=== PATIENT | female | born 1990 | race African-American/Black ===

== ENCOUNTER 2021-04-21 12:26 | Emergency (ER) | payer MEDICAID ==
[~2021-04-21] VITALS: Ht 165.1 cm; Wt 70.0 kg
[2021-04-21 13:12] LABS: BASOPHILS % (AUTO) 1.1 % (0.0-2.0); EOSINOPHILS % (AUTO) 0.4 % (1.0-6.0); HEMATOCRIT 41.7 % (36-46); HEMOGLOBIN 14.1 g/dL (12.0-16.0); LYMPHOCYTES # (AUTO) 1.2 K/uL (1.0-4.8); LYMPHOCYTES % (AUTO) 21.7 % (22.0-44.0); MEAN CORPUSCULAR HEMOGLOBIN 34.7 pg (26.0-34.0); MEAN CORPUSCULAR HGB CONC 33.7 G/dL (31.0-37.0); MEAN CORPUSCULAR VOLUME 103 fL (80-100); MONOCYTES # (AUTO) 0.6 K/uL (0.1-1.0); MONOCYTES % (AUTO) 11.2 % (2.0-9.0); NEUTROPHILS # (AUTO) 3.5 K/uL (1.8-7.7); NEUTROPHILS % (AUTO) 65.6 % (40.0-70.0); PLATELET COUNT (AUTO) 188 K/uL (150-450); RED BLOOD CELL COUNT(AUTO) 4.05 MIL/uL (4.00-5.20); RED CELL DISTRIBUTION WIDTH 13.4 % (11.5-14.5)
[2021-04-21 13:23] LABS: ANION GAP 10 mmol/L (8-16); CALCIUM, TOTAL 9.4 mg/dL (8.8-10.5); CARBON DIOXIDE 28 mmol/L (22-29); CHLORIDE 96 mmol/L (98-107); CREATININE 0.99 mg/dL (0.60-1.30); GLOMERULAR FILTR. RATE CALC > 60 mL/min (>60); GLUCOSE,RANDOM 76 mg/dL (70-110); POTASSIUM 3.2 mmol/L (3.5-5.1); SODIUM SERUM 134 mmol/L (136-145); UREA NITROGEN, BLOOD 7 mg/dL (7-18)
[2021-04-21 13:34] LABS: AMPHET/METH SCREEN,URINE POSITIVE (NEGATIVE); BARBITURATE SCREEN, URINE NEGATIVE (NEGATIVE); BENZODIAZEPINES SCREEN,URINE NEGATIVE (NEGATIVE); CANNABINOID SCREEN,URINE POSITIVE (NEGATIVE); COCAINE SCREEN,URINE NEGATIVE (NEGATIVE); METHADONE SCREEN, URINE NEGATIVE (NEGATIVE); OPIATE SCREEN,URINE NEGATIVE (NEGATIVE); PHENCYCLIDINE SCREEN,URINE NEGATIVE (NEGATIVE)
[2021-04-21 13:52] LABS: ALANINE AMINOTRANSFERASE 67 U/L (12-78); ALBUMIN 4.4 g/dL (3.4-5.0); ALKALINE PHOSPHATASE 137 U/L (46-116); ASPARTATE AMINOTRANSFERASE 70 U/L (15-37); BILIRUBIN,TOTAL 0.8 mg/dL (0.1-1.0); HCG,QUANTITATIVE < 1 mIU/mL (0-6); TOTAL PROTEIN, SERUM 9.3 g/dL (6.4-8.2)
[2021-04-21] MEDS ORDERED: LORazepam 1 MG TABLET PO ONE (14:00)
[2021-04-21 15:25] VITALS: BP 153/92
== END 2021-04-21 15:39 | disposition home or self-care (01) ==
LOC: EMS 12:28
DX: F10.239 Alcohol dependence with withdrawal, unspecified (principal); R44.3 Hallucinations, unspecified; F15.10 Other stimulant abuse, uncomplicated; F17.210 Nicotine dependence, cigarettes, uncomplicated; Y90.3 Blood alcohol level of 60-79 mg/100 ml
CPT/HCPCS: 36415; 80053; 80307; 84702; 85025; 99283; G0480

== ENCOUNTER 2021-04-21 17:31 | Emergency (ER) | payer MEDICAID ==
[~2021-04-21] VITALS: Ht 165.1 cm; Wt 69.5 kg
[2021-04-21 17:36] VITALS: BP 136/101
== END 2021-04-21 18:30 | disposition home or self-care (01) ==
LOC: EMS 17:33
DX: R44.0 Auditory hallucinations (principal); Z53.21 Procedure and treatment not carried out due to patient leaving prior to being seen by health care provider

== ENCOUNTER 2021-04-23 03:10 | Emergency (ER) | payer MEDICAID ==
[~2021-04-23] VITALS: Ht 165.1 cm; Wt 69.5 kg
[2021-04-23] MEDS ORDERED: CefTRIAXone SODIUM 1 GM/VIAL IM ONE (06:30)
[2021-04-23] MEDS ORDERED: LIDOCAINE/PF 1% 2 ML VIAL IM ONE (06:30)
[2021-04-23] MEDS ORDERED: AZITHROMYCIN 500 MG TABLET PO ONE (06:30)
[2021-04-23 07:00] VITALS: BP 120/74
== END 2021-04-23 07:26 | disposition home or self-care (01) ==
LOC: EMS 03:11
DX: N76.0 Acute vaginitis (principal); F17.210 Nicotine dependence, cigarettes, uncomplicated; Z76.0 Encounter for issue of repeat prescription
CPT/HCPCS: 81025; 96372; 99283; J0696; J3490; Q9967

== ENCOUNTER 2021-11-14 13:36 | Inpatient (IN) | payer MEDICAID ==
[~2021-11-14] VITALS: Ht 162.6 cm; Wt 63.6 kg
[2021-11-14] MEDS ORDERED: LORazepam 2 MG/ML VIAL IM ONE (14:30)
[2021-11-14] MEDS ORDERED: HALOPERIDOL LACTATE 5 MG/ML VIAL IM ONE (14:30)
[2021-11-14] MEDS ORDERED: DiphenhydrAMINE HCL 50 MG/ML VIAL IM ONE (14:30)
[2021-11-14 15:26] LABS: BASOPHILS % (AUTO) 0.8 % (0.0-2.0); EOSINOPHILS % (AUTO) 4.3 % (1.0-6.0); HEMATOCRIT 37.3 % (36-46); HEMOGLOBIN 12.6 g/dL (12.0-16.0); LYMPHOCYTES # (AUTO) 1.1 K/uL (1.0-4.8); MEAN CORPUSCULAR HEMOGLOBIN 31.5 pg (26.0-34.0); MEAN CORPUSCULAR HGB CONC 33.6 G/dL (31.0-37.0); MEAN CORPUSCULAR VOLUME 94 fL (80-100); MONOCYTES # (AUTO) 0.4 K/uL (0.1-1.0); MONOCYTES % (AUTO) 13.8 % (2.0-9.0); NEUTROPHILS # (AUTO) 1.2 K/uL (1.8-7.7); NEUTROPHILS % (AUTO) 43.1 % (40.0-70.0); PLATELET COUNT (AUTO) 224 K/uL (150-450); RED BLOOD CELL COUNT(AUTO) 3.98 MIL/uL (4.00-5.20); RED CELL DISTRIBUTION WIDTH 14.4 % (11.5-14.5)
[2021-11-14 15:38] LABS: ANION GAP 9 mmol/L (8-16); CALCIUM, TOTAL 8.9 mg/dL (8.8-10.5); CARBON DIOXIDE 27 mmol/L (22-29); CHLORIDE 102 mmol/L (98-107); CREATININE 0.98 mg/dL (0.60-1.30); GLOMERULAR FILTR. RATE CALC > 60 mL/min (>60); GLUCOSE,RANDOM 70 mg/dL (70-110); POTASSIUM 3.7 mmol/L (3.5-5.1); SODIUM SERUM 138 mmol/L (136-145); UREA NITROGEN, BLOOD 13 mg/dL (7-18)
[2021-11-14 15:44] LABS: ALANINE AMINOTRANSFERASE 20 U/L (12-78); ALBUMIN 3.7 g/dL (3.4-5.0); ALKALINE PHOSPHATASE 83 U/L (46-116); ASPARTATE AMINOTRANSFERASE 20 U/L (15-37); BILIRUBIN,TOTAL 0.4 mg/dL (0.1-1.0); TOTAL PROTEIN, SERUM 7.1 g/dL (6.4-8.2)
[2021-11-14 15:54] LABS: COVID AG,FIA SOURCE NASAL SWAB
[2021-11-14] MEDS ORDERED: LORazepam 2 MG TABLET PO PRN (16:00)
[2021-11-14] MEDS ORDERED: ZOLPIDEM TARTRATE 10 MG TABLET PO PRN (16:00)
[2021-11-14] MEDS ORDERED: HALOPERIDOL 5 MG TABLET PO PRN (16:00)
[2021-11-14 19:05] VITALS: BP 126/69
[2021-11-14] MEDS ORDERED: RISP2TAB45 PO (21:13)
[2021-11-14] MEDS ORDERED: FLUO20CA36 PO (21:13)
[2021-11-15 04:55] VITALS: BP 123/61
[2021-11-15 08:08] VITALS: BP 122/59
[2021-11-15 16:25] VITALS: BP 112/82
[2021-11-15] MEDS: RisperiDONE 1 MG TABLET PO SCH (16:33)
[2021-11-15] MEDS ORDERED: ONDANSETRON HCL 4 MG TABLET PO PRN (17:15)
[2021-11-15] MEDS ORDERED: DOCUSATE SODIUM 100 MG CAPSULE PO PRN (17:15)
[2021-11-15] MEDS ORDERED: ALBUTEROL SULFATE HFA 90 MCG/PUFF 8 GM INHALER IH PRN (17:15)
[2021-11-15] MEDS ORDERED: OMEPRAZOLE 20 MG CAPSULE PO PRN (17:15)
[2021-11-15] MEDS ORDERED: LOPERAMIDE HCL 2 MG CAPSULE PO PRN (17:15)
[2021-11-15] MEDS ORDERED: CloNIDine HCL 0.1 MG TABLET PO PRN (17:15)
[2021-11-15] MEDS ORDERED: BACITRACIN 28 GM OINTMENT TP PRN (17:15)
[2021-11-15] MEDS ORDERED: PETROLATUM,WHITE 28 GM JELLY TP PRN (17:15)
[2021-11-15] MEDS ORDERED: BENZOCAINE/MENTHOL LOZENGE PO PRN (17:15)
[2021-11-15] MEDS ORDERED: MAG HYDROX/AL HYDROX/SIMETH ES 30 ML SUSPENSION UDCUP PO PRN (17:15)
[2021-11-15] MEDS ORDERED: ACETAMINOPHEN 325 MG TABLET PO PRN (17:15)
[2021-11-15] MEDS ORDERED: IBUPROFEN 600 MG TABLET PO PRN (17:15)
[2021-11-15] MEDS ORDERED: MAGNESIUM HYDROXIDE SUSPENSION 30 ML UDCUP PO PRN (17:15)
[2021-11-16 06:08] VITALS: BP 108/65
[2021-11-16] MEDS: RisperiDONE 1 MG TABLET PO SCH ×2 (08:20→16:28)
[2021-11-16 08:49] VITALS: BP 106/70
[2021-11-16 16:40] VITALS: BP 100/65
[2021-11-17 05:08] VITALS: BP 101/62
[2021-11-17 08:19] VITALS: BP 103/62
[2021-11-17] MEDS: RisperiDONE 1 MG TABLET PO SCH ×2 (09:00→16:05)
[2021-11-17 16:23] VITALS: BP 109/73
[2021-11-25] MEDS ORDERED: RISP1TAB89 PO (15:23)
== END 2021-11-17 16:51 | disposition home or self-care (01) | DRG 750 ==
LOC: EMS 13:40 → B3A 16:32
PROVIDERS: ADMIT Psychiatry & Neurology Psychiatry; ATTEND Psychiatry & Neurology Psychiatry
DX: F25.9 Schizoaffective disorder, unspecified (principal); D72.819 Decreased white blood cell count, unspecified; F12.10 Cannabis abuse, uncomplicated; F41.9 Anxiety disorder, unspecified; G47.00 Insomnia, unspecified; Z20.822 Contact with and (suspected) exposure to COVID-19; F17.210 Nicotine dependence, cigarettes, uncomplicated; Z72.89 Other problems related to lifestyle; Z78.1 Physical restraint status
CPT/HCPCS: 80053; 84703; 85025; 99285; G0480; J1200; J1630; J2060

== ENCOUNTER 2023-09-28 11:39 | Emergency (ER) | payer MEDICAID, OTHER ==
[~2023-09-28] VITALS: Ht 165.1 cm; Wt 61.4 kg
[~2023-09-28 11:39] MED LIST: FLUO20CA36 PO; RISP1TAB89 PO; RISP2TAB45 PO
[2023-09-28 11:53] VITALS: TEMP 98.5
[2023-09-28] MEDS: TraMADol HCL 50 MG TABLET PO ONE (14:02)
[2023-09-28] MEDS ORDERED: ACYC-138 PO (14:21)
[2023-09-28] MEDS ORDERED: TRAM-559 PO (14:22)
[2023-09-28] MEDS: LIDOCAINE/PF 1% 2 ML VIAL IM ONE (14:43)
[2023-09-28] MEDS: CefTRIAXone SODIUM 1 GM/VIAL IM ONE (14:43)
[2023-09-28] MEDS: AZITHROMYCIN 500 MG TABLET PO ONE (14:43)
[2023-09-28 15:20] VITALS: BP 112/69; PULSE 67; RESP 18
== END 2023-09-28 15:29 | disposition home or self-care (01) ==
LOC: EMS 11:39
DX: S92.902A Unspecified fracture of left foot, initial encounter for closed fracture (principal); B00.9 Herpesviral infection, unspecified; F17.210 Nicotine dependence, cigarettes, uncomplicated; X58.XXXA Exposure to other specified factors, initial encounter; Y93.89 Activity, other specified; Y92.89 Other specified places as the place of occurrence of the external cause; Y99.8 Other external cause status
CPT/HCPCS: 99284; 29505; 87255; 73610; 73630; 87491; 87591; 96372; J0696; J3490; Q9967

== ENCOUNTER 2024-04-02 23:53 | Emergency (ER) | payer OTHER ==
[~2024-04-02] VITALS: Ht 162.6 cm; Wt 56.4 kg
[~2024-04-02 23:53] MED LIST changes: +ACYC-138 PO; +FLUO-418 PO; -FLUO20CA36 PO; -RISP1TAB89 PO; -RISP2TAB45 PO; +TRAM50TA5 PO
[2024-04-03 00:02] VITALS: TEMP 99.8
[2024-04-03 00:20] LABS: COVID AG,FIA SOURCE NASAL SWAB
[2024-04-03 00:34] LABS: INFLUENZA TYPE A NEGATIVE FOR TYPE A (NEGATIVE); INFLUENZA TYPE B POSITIVE FOR TYPE B (NEGATIVE); SARS-COV2 (COVID) ANTIGEN,FIA Negative (Negative)
[2024-04-03 00:41] LABS: RAPID GROUP A STREP NEGATIVE (NEGATIVE)
[2024-04-03] MEDS: OSELTAMIVIR PHOSPHATE 75 MG CAPSULE PO ONE (01:46)
[2024-04-03] MEDS: ONDANSETRON 4 MG TABLET PO ONE (01:46)
[2024-04-03] MEDS: IBUPROFEN 400 MG TABLET PO ONE (01:47)
[2024-04-03] MEDS: DEXAMETHASONE 4 MG TABLET PO ONE (01:47)
[2024-04-03] MEDS: ACETAMINOPHEN 325 MG TABLET PO ONE (01:48)
[2024-04-03 01:55] VITALS: BP 148/60; PULSE 84; RESP 17; O2SAT 97
[2024-04-03] MEDS ORDERED: OSEL75CA45 PO (02:41)
== END 2024-04-03 03:24 | disposition home or self-care (01) ==
LOC: EMS 23:53
DX: J10.1 Influenza due to other identified influenza virus with other respiratory manifestations (principal); F17.210 Nicotine dependence, cigarettes, uncomplicated; Z20.822 Contact with and (suspected) exposure to COVID-19
CPT/HCPCS: 99284; 87426; 87430; 87804; J8540; Q0162

== ENCOUNTER 2024-04-07 09:56 | Emergency (ER) | payer OTHER ==
[~2024-04-07] VITALS: Ht 162.6 cm; Wt 58.2 kg
[~2024-04-07 09:56] MED LIST changes: +OSEL75CA45 PO
[2024-04-07 10:01] VITALS: TEMP 98
[2024-04-07 10:03] LABS: COVID AG,FIA SOURCE NASAL SWAB
[2024-04-07 10:28] LABS: RAPID GROUP A STREP NEGATIVE (NEGATIVE); SARS-COV2 (COVID) ANTIGEN,FIA Negative (Negative)
[2024-04-07 10:29] LABS: INFLUENZA TYPE A NEGATIVE FOR TYPE A (NEGATIVE); INFLUENZA TYPE B NEGATIVE FOR TYPE B (NEGATIVE)
[2024-04-07 11:27] VITALS: BP 108/72; PULSE 84; RESP 16; O2SAT 98
[2024-04-07] MEDS ORDERED: IBUP-1506 PO (12:36)
[2024-04-07] MEDS: IBUPROFEN 600 MG TABLET PO ONE (12:36)
[2024-04-07] MEDS: AMOXICILLIN TRIHYDRATE 250 MG CAPSULE PO ONE (12:36)
[2024-04-07] MEDS ORDERED: AMOX500C2 PO (12:36)
== END 2024-04-07 13:12 | disposition home or self-care (01) ==
LOC: EMS 09:56
DX: J02.9 Acute pharyngitis, unspecified (principal); R53.83 Other fatigue; M79.10 Myalgia, unspecified site; F17.210 Nicotine dependence, cigarettes, uncomplicated; Z20.822 Contact with and (suspected) exposure to COVID-19
CPT/HCPCS: 87430; 87804; 99283

== ENCOUNTER 2025-08-03 11:25 | Emergency (ER) | payer OTHER ==
[~2025-08-03] VITALS: Ht 162.6 cm; Wt 74.5 kg
[~2025-08-03 11:25] MED LIST changes: -ACYC-138 PO; +AMOX500C2 PO; -FLUO-418 PO; +IBUP-1506 PO; -OSEL75CA45 PO; -TRAM50TA5 PO
[2025-08-03 11:33] VITALS: BP 118/82; PULSE 79; RESP 18; TEMP 98.2; O2SAT 100
[2025-08-03] MEDS ORDERED: IBUP-1492 PO (11:59)
== END 2025-08-03 12:35 | disposition home or self-care (01) ==
LOC: EMS 11:25
DX: Z00.00 Encounter for general adult medical examination without abnormal findings (principal); F20.9 Schizophrenia, unspecified; F41.9 Anxiety disorder, unspecified; F32.A Depression, unspecified; F17.210 Nicotine dependence, cigarettes, uncomplicated; F15.90 Other stimulant use, unspecified, uncomplicated; N89.8 Other specified noninflammatory disorders of vagina
CPT/HCPCS: 87491; 87591; 99283